=== PATIENT | female | born 1965 | race Caucasian/White ===

== ENCOUNTER 2025-06-28 05:42 | Emergency (ER) | payer BC ==
[2025-06-28 07:00] LABS: #Basophils 0.07 10x3/uL (0.0-0.2); #Eosinophils 0.57 10x3/uL (0.0-0.5); #Monocytes 0.53 10x3/uL (0.0-1.1); #Neutrophils 3.99 10x3/uL (1.5-8.4); %Basophils 0.9 % (0.0-2.0); %Eosinophils 7.5 % (0.0-6.0); %Lymphocytes 32.2 % (18.0-47.0); %Monocytes 6.9 % (0.0-10.0); %Neutrophils 52.1 % (40.0-75.0); Hematocrit 43.6 % (34.9-44.5); Hemoglobin 14.5 g/dL (12.0-15.5); Mean Corpuscular Hemoglobin 28.4 pg (27.0-33.0); Mean Corpuscular Volume 85.3 fL (81.6-98.3); Platelet Count 238 10x3/uL (150-450); Red Blood Cell (RBC) Count 5.11 10x6/uL (3.90-5.03); White Blood Cell (WBC) Count 7.65 10x3/uL (3.5-10.5)
[2025-06-28 07:18] LABS: ALT (SGPT) 40 U/L (Less than 34); AST (SGOT) 39 U/L (11-34); Albumin 4.2 g/dL (3.1-4.5); Alkaline Phosphatase 103 U/L (40-110); Anion Gap 14 mmol/L (10-20); BUN (Urea Nitrogen) 6 mg/dL (9.8-20.1); Bilirubin, Total 0.7 mg/dL (0.3-1.2); Calc. Creatinine Clearance 0 mL/min (70-130); Calcium 9.2 mg/dL (7.8-10.44); Carbon Dioxide 25 mmol/L (22-29); Chloride 108 mmol/L (98-107); Globulin 3.1 g/dL (2.4-3.5); Glucose 115 mg/dL (70-105); Magnesium 2.1 mg/dL (1.6-2.6); Potassium 4.7 mmol/L (3.5-5.1); Sodium 142 mmol/L (136-145)
[2025-06-28 07:20] LABS: Troponin I Less than 0.010 ng/mL (< 0.028)
[2025-06-28] MEDS ORDERED: predniSONE 20 MG TAB ONE (07:57)
[2025-06-28] MEDS ORDERED: Albuterol 2.5 MG (3 mL) NEB ONE (08:06)
== END 2025-06-28 09:25 | disposition home or self-care (01) ==
LOC: CSHERS 05:42
DX: J45.901 Unspecified asthma with (acute) exacerbation (principal); R74.01 Elevation of levels of liver transaminase levels; R03.0 Elevated blood-pressure reading, without diagnosis of hypertension; Z75.3 Unavailability and inaccessibility of health-care facilities
CPT/HCPCS: 36415; 71045; 80053; 83735; 83880; 84484; 85025; 85379; 87428; 93005; 94640; J7512; J7611

== ENCOUNTER 2025-07-05 13:39 | Emergency (ER) | payer BC ==
[2025-07-05] MEDS ORDERED: Albuterol 2.5 MG (3 mL) NEB ONE (14:46)
[2025-07-05 15:01] LABS: #Basophils 0.10 10x3/uL (0.0-0.2); #Eosinophils 0.49 10x3/uL (0.0-0.5); #Monocytes 0.59 10x3/uL (0.0-1.1); #Neutrophils 5.64 10x3/uL (1.5-8.4); %Basophils 1.1 % (0.0-2.0); %Eosinophils 5.2 % (0.0-6.0); %Lymphocytes 26.0 % (18.0-47.0); %Monocytes 6.3 % (0.0-10.0); %Neutrophils 59.7 % (40.0-75.0); Hematocrit 44.0 % (34.9-44.5); Hemoglobin 14.7 g/dL (12.0-15.5); Mean Corpuscular Hemoglobin 28.1 pg (27.0-33.0); Mean Corpuscular Volume 84.1 fL (81.6-98.3); Platelet Count 334 10x3/uL (150-450); Red Blood Cell (RBC) Count 5.23 10x6/uL (3.90-5.03); White Blood Cell (WBC) Count 9.43 10x3/uL (3.5-10.5)
[2025-07-05 15:27] LABS: ALT (SGPT) 34 U/L (Less than 34); AST (SGOT) 28 U/L (11-34); Albumin 3.8 g/dL (3.1-4.5); Alkaline Phosphatase 104 U/L (40-110); Anion Gap 13 mmol/L (10-20); BUN (Urea Nitrogen) 7 mg/dL (9.8-20.1); Bilirubin, Total 0.3 mg/dL (0.3-1.2); Calc. Creatinine Clearance 0 mL/min (70-130); Calcium 9.2 mg/dL (7.8-10.44); Carbon Dioxide 26 mmol/L (22-29); Chloride 106 mmol/L (98-107); Globulin 2.9 g/dL (2.4-3.5); Glucose 92 mg/dL (70-105); Potassium 3.3 mmol/L (3.5-5.1); Sodium 142 mmol/L (136-145)
== END 2025-07-05 16:59 ==
LOC: CSHERS 13:39
DX: J45.901 Unspecified asthma with (acute) exacerbation (principal); R09.02 Hypoxemia; Z87.891 Personal history of nicotine dependence
CPT/HCPCS: 36415; 71045; 80053; 83605; 83880; 85025; 93005; 94640; 94760; 96374; J2919; J7611